=== PATIENT | male | born 1955 | race Caucasian/White ===

== ENCOUNTER → 2024-01-13 06:25 | Day surgery (SDC) | payer MEDICARE, SELFPAY ==
[2024-01-13 08:51] LABS: Glucose - Point of Care 113 mg/dl (70-99)
== END ==
LOC: GI 06:25
PROVIDERS: ATTENDING PHYSICIAN Internal Medicine Gastroenterology
DX: Z12.11 Encounter for screening for malignant neoplasm of colon (principal); K63.5 Polyp of colon; K57.30 Diverticulosis of large intestine without perforation or abscess without bleeding; K64.8 Other hemorrhoids; Z86.010 Personal history of colon polyps
CPT/HCPCS: 45380; 88305; 82962

== ENCOUNTER → 2024-03-30 11:47 | Outpatient (REF) | payer MEDICARE, SELFPAY | LOC: MRI 3T 11:47 | PROVIDERS: ATTENDING PHYSICIAN Specialist; FAMILY PHYSICIAN Nurse Practitioner | DX: M54.16 Radiculopathy, lumbar region (principal) | CPT/HCPCS: 72158; A9575 ==

== ENCOUNTER → 2024-06-06 09:06 | Outpatient (REF) | payer OTHER, SELFPAY | LOC: RCS 09:06 | PROVIDERS: ATTENDING PHYSICIAN Internal Medicine Cardiovascular Disease; FAMILY PHYSICIAN Nurse Practitioner | DX: R01.1 Cardiac murmur, unspecified (principal) | CPT/HCPCS: 93306; Q9957 ==

== ENCOUNTER → 2025-02-09 07:51 | Outpatient (REF) | payer OTHER, SELFPAY | LOC: RAD 07:51 | PROVIDERS: ATTENDING PHYSICIAN Neurological Surgery; FAMILY PHYSICIAN Nurse Practitioner | DX: M54.50 Low back pain, unspecified (principal); G89.29 Other chronic pain; R19.03 Right lower quadrant abdominal swelling, mass and lump | CPT/HCPCS: 72110; 76705 ==

== ENCOUNTER → 2025-02-10 09:13 | Outpatient (REF) | payer OTHER, SELFPAY | LOC: RAD 09:13 | PROVIDERS: ATTENDING PHYSICIAN Neurological Surgery; FAMILY PHYSICIAN Nurse Practitioner | DX: M54.50 Low back pain, unspecified (principal); G89.29 Other chronic pain; Z98.1 Arthrodesis status; M47.816 Spondylosis without myelopathy or radiculopathy, lumbar region; M48.061 Spinal stenosis, lumbar region without neurogenic claudication | CPT/HCPCS: 72131 ==

== ENCOUNTER → 2025-04-11 06:47 | Outpatient (REF) | payer OTHER, SELFPAY | LOC: PAVMRI 06:47 | PROVIDERS: ATTENDING PHYSICIAN Neurological Surgery; FAMILY PHYSICIAN Nurse Practitioner | DX: M54.50 Low back pain, unspecified (principal); G89.29 Other chronic pain; M54.6 Pain in thoracic spine; Z98.1 Arthrodesis status; M47.816 Spondylosis without myelopathy or radiculopathy, lumbar region; M48.061 Spinal stenosis, lumbar region without neurogenic claudication | CPT/HCPCS: 72148 ==

== ENCOUNTER 2025-06-12 06:19 | Day surgery (SDC) | payer OTHER, SELFPAY ==
[2025-05-29 13:42] VITALS: BMI 36.7
--- NOTE | 2025-05-30 15:08 | PTCARENOTE ---
Abnormal ECG done 05/29/[address] Garcia, no further intervention requested.
[2025-06-12] VITALS (9 sets, daily range): BP systolic 108–145; BP diastolic 54–66; BMI 36.7
[2025-06-12] MEDS: TYLENOL 1000 MG PO (09:22)
[2025-06-12] MEDS: NORMOSOL-R/PLASMALYTE-A 1000 IV (09:23)
[2025-06-12 09:30] LABS: Glucose - Point of Care 88 mg/dl (70-99)
--- NOTE | 2025-06-12 11:17 | W.SUR.PREOP ---
Pre-Operative Surgical Note
-
I have examined this patient prior to the performance of the scheduled procedure.
The patient's condition is unchanged from the time of the current History and
Physical and the patient is able to undergo the scheduled procedure.
--- NOTE | 2025-06-12 11:17 | HP.FOC2 ---
Focused History & Physical
Chief Complaint
HPI:
Chief Complaint: Incisional hernia
HPI / Indication for Planned Procedure: This is a 69-year-old male who presents with a symptomatic incisional hernia containing intestine. Will plan for robotic incisional hernia repair with mesh.
Relevant Past Medical History: Negative
Relevant Social History: Negative
Relevant Family History: Negative
Relevant Past Surgical History: Positive for (Umbilical hernia repair, robotic prostatectomy)
Review of Systems
Review of Pertinent Systems: All Systems Negative
Medication
See Medication form for detailed medications: Yes
Medication List (including Herbals & OTC):
Fish Oil 1 cap PO BID 06/05/25
alpha lipoic acid 600 mg capsule 600 mg PO BID 06/05/25
atorvastatin 20 mg tablet 20 mg PO QPM 06/05/25
cholecalciferol (vitamin D3) 125 mcg (5,000 unit) tablet (Vitamin D3) 125 mcg PO BID 06/05/25
cyclobenzaprine 10 mg tablet 10 mg PO HS 06/05/25
hydrochlorothiazide 12.5 mg capsule 12.5 mg PO DAILY 06/05/25
mirabegron 50 mg tablet,extended release 24 hr 50 mg PO DAILY 06/05/25
omeprazole 40 mg capsule,delayed release 40 mg PO DAILY 06/05/25
pregabalin 300 mg capsule 300 mg PO BID 06/05/25
pregabalin 75 mg capsule 75 mg PO QPM 06/05/25
tirzepatide 10 mg/0.5 mL subcutaneous pen injector (Mounjaro) 10 mg SC QWEEK 06/05/25
turmeric 1 cap PO BID 06/05/25
valsartan 80 mg tablet 80 mg PO BID 06/05/25
vitamin B complex 1 tab PO BID 06/05/25
zolpidem 10 mg tablet 10 mg PO HS 06/05/25
Marijuana 06/12/25
polyethylene glycol 3350 17 gram/dose oral powder (Miralax) 17 g PO PRN PRN constipation 06/12/25
Medications Reviewed: Yes
Allergies and Reactions
Patient has Allergies: No
Noted Allergies and Reactions:
Allergy/AdvReac Type Severity Reaction Status Date / Time
No Known Allergies Allergy Verified 06/12/25 09:04
Pertinent Physical Exam
All Other Systems: Negative
Head/Neck: Normal
Diagnosis / Assessment
This is a 69-year-old male who presents with a symptomatic incisional hernia containing intestine. Will plan for robotic incisional hernia repair with mesh.
Plan / Procedure
This is a 69-year-old male who presents with a symptomatic incisional hernia containing intestine. Will plan for robotic incisional hernia repair with mesh.
Anesthesia/Sedation to be done by Anesthesia Provider: Yes
[2025-06-12] MEDS: DILAUDID 0.5 MG IV ×2 (14:31→14:44)
--- NOTE | 2025-06-12 14:34 | W.IMMPOSTOP ---
Surgical Immed Post Op Note
-
Primary Surgeon: Tyler Lovelace MD
Assisting Surgeon: Nedra Greene
Pre-op Diagnosis: Incarcerated incisional hernia
Post-op Diagnosis: Same
Procedure Performed: Robotic incarcerated incisional hernia repair with mesh
Anesthesia Type: General
Specimen / Cultures: Hernia contents
Estimated Blood Loss: 11 cc
Complications: None
Operative Findings: The patient was found to have a 2.5 cm incisional hernia in the right lower quadrant at the level of the semilunar line after reduction of the contents back into the abdomen and lysing the midline adhesions a preperitoneal flap
was made. Toward the midline the tissues were very thin and friable but this became more robust as we moved laterally. The hernia was reduced and some additional preperitoneal fat and 2 white zhen-like masses were removed from inside the hernia
and sent as a specimen. The hernia defect was then closed in the transverse direction with a 0 V-Loc 180 suture. As the peritoneal flap was quite thin a [address] coated polypropylene mesh was used to reinforce the defect. This
was secured in place with interrupted 2-0 Vicryl sutures in 4 quadrants and the flap was closed over it, about 25% of the mesh was exposed, this portion of the mesh was secured to the overlying fascia with a 2-0 PDS barbed suture.
POST OP PLAN:
Imaging: None
Labs: Routine AM
Diet: Advance to Regular as tolerated
Analgesia: Tylenol 650mg q6 Lorri, Dilaudid 0.5mg q2h PRN
Neuro/vascular checks: Per unit protocol
AC/AP: Hold Therapeutic AC, Ok for DVT PPx
Activity: Ad Cata
Wound/Incisions/Drains: Routine
Abx: None
Dispo: Home versus postoperative observation pending pain control.
[2025-06-12 15:24] LABS: Glucose - Point of Care 103 mg/dl (70-99)
[2025-06-12] MEDS: ROXICODONE 5 MG PO (15:57)
[2025-06-12] MEDS: TYLENOL 650 MG PO (15:58)
--- NOTE | 2025-06-14 09:15 | OR.RPT ---
Operative Report
Operative Report
Patient Name: Macario Brown
: 1955
Date of Operation: 06/12/2025
Preoperative Diagnosis: Incarcerated incisional hernia
Postoperative Diagnosis: Same
Procedure(s):
Robotic incarcerated incisional hernia repair with mesh
Surgeon(s):
Dr. Lovelace
Car Varnisher(s):
NESHA Gonzalez/KAREN
Anesthesia: General
Estimated Blood Loss: 11 cc
Urine Output: None
Drains/Lines/Implants:
[address] mesh
Specimens:
None
HPI/Surgical Indications:
This is a 69-year-old male who was seen in my office for a right lower quadrant bulge in the setting of a previous robotic prostatectomy and diagnosed with an incarcerated incisional hernia hernia. Risks/Benefits/Alternatives were discussed at
length, and the patient agreed to proceed with surgery.
Operative Findings: The patient was found to have a 2.5 cm incisional hernia in the right lower quadrant at the level of the semilunar line after reduction of the contents back into the abdomen and lysing the midline adhesions a preperitoneal flap
was made. Toward the midline the tissues were very thin and friable but this became more robust as we moved laterally. The hernia was reduced and some additional preperitoneal fat and 2 white zhen-like masses were removed from inside the hernia
and sent as a specimen. The hernia defect was then closed in the transverse direction with a 0 V-Loc 180 suture. As the peritoneal flap was quite thin a [address] coated polypropylene mesh was used to reinforce the defect. This
was secured in place with interrupted 2-0 Vicryl sutures in 4 quadrants and the flap was closed over it, about 25% of the mesh was exposed, this portion of the mesh was secured to the overlying fascia with a 2-0 PDS barbed suture.
Procedure Description:
The patient was brought to the Operating Room and placed in the supine position with the arms tucked. IV antibiotics were infused and Venodyne stockings placed. Following uneventful induction of general endotracheal anesthesia, an orogastric tube
was placed. The abdomen was prepped and draped in the usual sterile fashion. The abdomen was entered using a Veress technique which required 1 pass, pneumoperitoneum to 15 mmHg was obtained without difficulty. An 8mm trochar was passed through the
abdominal wall roughly 20 cm laterally from the defect in the left upper quadrant, we then confirmed that no inadvertent injury was made while passing the trocar or Veress needle. We then placed two additional 8 mm ports in the left lower quadrant.
Bilateral tap blocks were performed. The robot was docked. We then introduced our prograsper through the inferior/left hand port and a monopolar scissors through the superior port. We then turned our attention to the hernia in the right lower
quadrant which was at about the level of the semilunar line. Small loop of bowel was in the hernia which was carefully pulled and reduced with with significant tension. The defect measured about 2.5 cm. Roughly 12 cm away from this we began our
peritoneal flap extending this laterally both superior and inferior to the hernia defect such that we were able to get our 'volcano sign'. We then worked on reducing the defect which contained additional preperitoneal fat and continued our
dissection out laterally for an additional 6 cm. Once our flap was created we introduced a ruler and a 0 V-Loc 180. The main hernia defect measured 2.5 cm. This was closed in the transverse direction. The pocket measured 11 x 11 cm. Because the
flap was quite thin and torn in the superior left portion I had my orthotic assistant insert an [address] Bard coated polypropylene mesh. Using an Endo passer the mesh was tethered to the abdominal wall and sutured in place with 2-0 vircyls
to ensure good apposition. A 2-0 Monocryl was introduced which was used to close our flap. The exposed portion of the mesh was sutured to the abdominal wall using a 2-0 PDS barbed suture. 75% of the mesh was closed. There were a few small defects
in the flap that were also closed with Vicryl sutures. All sutures were removed. The robot was undocked. The ports were removed under direct visualization and pneumoperitoneum was evacuated. The port sites were closed with 4-0 Monocryl followed by
Dermabond. Counts were correct and overall, the patient tolerated the procedure well and was taken to the Recovery Room postoperatively in stable condition.
I was the attending physician and performed the procedure with assistance from the PIT STEWARD above who assisted with port placement, needle and instrument exchanges as well as wound closure. I was present for all portions of the case except for skin
closure.
Tyler Lovelace MD
== END 2025-06-12 16:36 | disposition home or self-care (01) ==
LOC: SDS 06:19
PROVIDERS: ATTENDING PHYSICIAN Surgery; FAMILY PHYSICIAN Nurse Practitioner
DX: K43.0 Incisional hernia with obstruction, without gangrene (principal)
CPT/HCPCS: 49592; 36415; 82962; 88304; 93005; C1781